=== PATIENT | female | born 1975 | race Caucasian/White ===

== ENCOUNTER 2016-07-16 08:54 | Inpatient (IN) | payer MEDICAID ==
--- NOTE | 2016-07-09 18:18 | HISTORY & PHYSICAL ---
DATE OF ADMISSION: 07/16/16 ATTENDING PHYSICIAN: Meggan Adhikari MD HISTORY OF PRESENTATION: This is a 40-year-old 3, para 2 who will be 39 weeks on 07/16/16, who will be presenting for a repeat Caesarean section and bilateral tubal ligation. She has an EDC of 07/23/16 and her dates are by an 11-week ultrasound. She has a history of a full-term demise 06/13/11 at 40-1/7 weeks secondary to an amniotic band. Her second , she delivered Apple on 09/23/13. She was induced at 37-5/7 weeks for possible placental insufficiency. She ended up having a low-transverse Caesarean section for recurrent lates and vaginal bleeding at 2 cm. The infant had Apgars of 8 and 9. There was a very short cord noted, only 25 cm and weight was 2438 grams. She otherwise did well. PRENATALS: Her prenatals are A positive, antibody screen negative, Rubella immune. Pap and HPV were negative 02/2014. GC and chlamydia were negative. Serology was nonreactive. hemoglobin and hematocrit were 13.8 and 41.9. HIV was negative. Hepatitis B was negative. She declined cystic fibrosis testing and trisomy screening. Her MSAFP was normal. One-hour glucose tolerance test was 83. She has been followed jointly with [facility] because of her history of term demise, and they have seen no concerns this . She declined her influenza vaccine repeatedly. Adacel vaccine was given 05/28/15. PAST MEDICAL HISTORY: Benign. PAST SURGICAL HISTORY: Low-transverse Caesarean section. SOCIAL HISTORY: No tobacco, alcohol or marijuana. She is to Fabián. They have 1 daughter Apple. She works as a massage therapist. FAMILY HISTORY: Significant for high blood pressure. MEDICATIONS: vitamins. ALLERGIES: None. PHYSICAL EXAMINATION VITAL SIGNS: Height 63 inches. Weight 172 pounds. Blood pressure 111/69. CARDIAC: Regular rate and rhythm. LUNGS: Clear. ABDOMEN: Gravid. Fundal height 5 consistent with dates. ASSESSMENT AND PLAN: Term with history of previous Caesarean section. Patient was offered a trial of labor, but she declined. She would like to proceed with a Caesarean section and bilateral tubal ligation as she and her have completed childbearing. She signed her Medicaid sterilization consent on 04/29/2016. [facility]ITAL[facility]atar[facility]
[~2016-07-16 08:54] MED LIST: CEFAZOLIN SODIUM 1 GM in NORMAL SALINE MINI-BAG+ 100 ML IV ONE; FAMOTIDINE IN SALINE, ISO-OSM 20 MG/50 ML PIGGYBACK IV SCH; HOME MEDICATION LIST NEEDED 1 EA EACH MC ONE; NORMAL SALINE 1,000 ML IV SCH
[2016-07-16 09:18] LABS: BASOPHILS 0.4 % (0.0-2.0); EOSINOPHILS# 0.1 X 10^3uL (0.0-0.4); HEMATOCRIT 41.9 % (36.0-48.0); HEMOGLOBIN 13.9 g/dL (12.0-16.0); LYMPHOCYTES 23.7 % (20.0-40.0); LYMPHOCYTES# 2.2 X 10^3uL (0.8-3.8); MEAN CELL VOLUME 91.6 fL (80.0-100.0); MEAN CORPUS. HGB CONCENTRATION 33.2 g/dL (32.0-36.0); MEAN CORPUSCULAR HEMOGLOBIN 30.4 pg (29.0-35.0); MEAN PLATELET VOLUME 8.1 fL (7.4-10.4); MONOCYTES 6.8 % (2.0-10.0); MONOCYTES# 0.6 X 10^3uL (0.2-1.0); NEUTROPHILS 68.1 % (54.0-75.0); NEUTROPHILS# 6.3 X 10^3uL (2.6-6.7); PLATELET COUNT 247 X 10^3uL (130-440); RED BLOOD COUNT 4.58 X 10^6uL (4.20-6.10); WHITE BLOOD COUNT 9.3 X 10^3uL (3.9-10.7)
[2016-07-16] MEDS ORDERED: MORPHINE SULFATE/PF 10 MG/10 ML VIAL ONE (09:23)
[2016-07-16] MEDS ORDERED: FENTANYL 100 MCG/2 ML VIAL ONE (09:24)
[2016-07-16] MEDS ORDERED: OXYTOCIN 10 UNITS/ML VIAL ONE (09:37)
[2016-07-16] MEDS ORDERED: EPHEDrine SULFATE 50 MG/ML VIAL ONE (09:37)
[2016-07-16] MEDS ORDERED: CEFAZOLIN SODIUM 1 GM/10 ML VIAL ONE (09:44)
[2016-07-16] MEDS ORDERED: FAMOTIDINE IN SALINE, ISO-OSM 50 ML IV ONE (09:44)
[2016-07-16 10:03] LABS: ABO GROUP TYPE A; ANTIBODY SCREEN NEGATIVE; RH TYPE POSITIVE
--- NOTE | 2016-07-16 10:11 | PROGRESS NOTE:Antepartum ---
Assessment and Plan - Date of Encounter Date of Encounter: 07/16/16 (1) Term Status: Acute Assessment and plan: Repeat LTCS today. Informed consent obtained. Current Visit: Yes (2) Encounter for sterilization Status: Acute Assessment and plan: Plan bilateral Tubal ligation. Current Visit: Yes - Time Spent With Patient Total time spent with greater than 50% in coordination of care (as documented) at patient's floor/unit and/or counseling patient: SALES & SERVICE ASSOCIATE: Antepartum PN Subj - Subjective Interval history: Patient arrives today for LTCS. Confirmed she would like BTL. Baby moving well. No Ctx or VB. See Dictated H/P. Antepartum ROS: movement normal, swelling (trace), no vaginal bleeding, no contractions, no loss of fluid, no headache, no shortness of breath SALES & SERVICE ASSOCIATE: Antepartum PN Obj Exam - Latest Vital Signs and I&O Latest Vital Signs/I&O: Vital Signs Temp 36.4 C L 07/16/16 09:30 Pulse 102 H 07/16/16 09:30 Resp 16 07/16/16 09:30 BP 118/87 07/16/16 09:30 Pulse Ox 94 07/16/16 09:30 Intake & Output 07/15/16 07/16/16 07/16/16 17:59 05:59 17:59 Weight 78.018 kg 78.018 kg - Exam Heart Monitor: category I Lungs: Bilateral: normal Heart Rhythm: Present: regular Heart sounds: Absent: [place] Extremities: Absent: edema Abdomen: Present: normal appearance - Lab Labs: Laboratory Last Values WBC 9.3 X 10^3uL (3.9-10.7) 07/16/16 09:04 RBC 4.58 X 10^6uL (4.20-6.10) 07/16/16 09:04 Hgb 13.9 g/dL (12.0-16.0) 07/16/16 09:04 Hct 41.9 % (36.0-48.0) 07/16/16 09:04 MCV 91.6 fL (80.0-100.0) D 07/16/16 09:04 MCH 30.4 pg (29.0-35.0) 07/16/16 09:04 MCHC 33.2 g/dL (32.0-36.0) 07/16/16 09:04 RDW 13.0 % (11.5-14.5) 07/16/16 09:04 Plt Count 247 X 10^3uL (130-440) 07/16/16 09:04 MPV 8.1 fL (7.4-10.4) 07/16/16 09:04 Neutrophils % 68.1 % (54.0-75.0) 07/16/16 09:04 Lymphocytes % 23.7 % (20.0-40.0) 07/16/16 09:04 Eosinophils % 1.0 % (0.0-6.0) 07/16/16 09:04 Basophils % 0.4 % (0.0-2.0) 07/16/16 09:04 Neutrophils # 6.3 X 10^3uL (2.6-6.7) 07/16/16 09:04 Lymphocytes # 2.2 X 10^3uL (0.8-3.8) 07/16/16 09:04 Monocytes 6.8 % (2.0-10.0) 07/16/16 09:04 Monocytes # 0.6 X 10^3uL (0.2-1.0) 07/16/16 09:04 Eosinophils # 0.1 X 10^3uL (0.0-0.4) 07/16/16 09:04 Basophils # 0.0 X 10^3uL (0.0-0.1) 07/16/16 09:04 ABO Group Type a 07/16/16 09:04 Rh Factor Positive 07/16/16 09:04 Antibody Screen Negative 07/16/16 09:04
[2016-07-16] MEDS ORDERED: DIPHENHYDRAMINE 50 MG/ML VIAL IV PRN (11:31)
[2016-07-16] MEDS ORDERED: NORMAL SALINE 1,000 ML IV SCH (11:31)
[2016-07-16] MEDS ORDERED: NALBUPHINE HCL 10 MG/ML AMP IV PRN (11:31)
[2016-07-16] MEDS ORDERED: HOME MEDICATION LIST NEEDED 1 EA EACH MC ONE (11:31)
[2016-07-16] MEDS ORDERED: DIPHENHYDRAMINE 25 MG CAPSULE PO PRN (11:31)
[2016-07-16] MEDS ORDERED: NALOXONE HCL 0.4 MG/ML VIAL IV PRN ×3 (11:31)
[2016-07-16] MEDS ORDERED: KETOROLAC TROMETHAMINE 30 MG/ML VIAL IV ONE (11:31)
[2016-07-16] MEDS ORDERED: FENTANYL 100 MCG/2 ML VIAL IV PRN (11:31)
[2016-07-16] MEDS ORDERED: MORPHINE SULFATE 10 MG/ML SYR IV PRN (11:31)
[2016-07-16] MEDS ORDERED: CEFAZOLIN SODIUM 1 GM in NORMAL SALINE MINI-BAG+ 100 ML IV ONE (11:31)
[2016-07-16] MEDS ORDERED: LACTATED RINGERS 1,000 ML IV SCH ×2 (12:00→13:24)
[2016-07-16] MEDS ORDERED: KETOROLAC TROMETHAMINE 30 MG/ML VIAL IV PRN (12:42)
[2016-07-16] MEDS: ONDANSETRON HCL 4 MG/2 ML VIAL IV PRN ×2 (13:08→14:24)
[2016-07-16 13:17] LABS: URINE MUCUS NONE SEEN (Up to 25%); URINE SQUAMOUS EPITHELIAL CELL NONE SEEN (<= 15/hpf); URINE WBC NONE SEEN (0-4/hpf)
[2016-07-16] MEDS ORDERED: SIMETHICONE CHEW 80 MG TABLET PO PRN (13:24)
[2016-07-16] MEDS ORDERED: MAGNESIUM HYDROXIDE 30 ML UDC PO PRN (13:24)
[2016-07-16] MEDS ORDERED: MEPERIDINE HCL/PF 50 MG/ML SYR IV PRN (13:24)
[2016-07-16] MEDS ORDERED: LANOLIN CREAM 1 APP/7 GM TUBE TOP PRN (13:24)
[2016-07-16] MEDS ORDERED: NALOXONE HCL 0.4 MG/ML VIAL ONE (13:39)
[2016-07-16 13:48] LABS: URINE APPEARANCE CLEAR; URINE COLOR YELLOW; URINE GLUCOSE NORMAL (NEGATIVE); URINE KETONE 100mg/dL (3+) (NEGATIVE); URINE LEUKOCYTE ESTERASE NEGATIVE (NEGATIVE); URINE NITRITE NEGATIVE (NEGATIVE); URINE PROTEIN 30mg/dL (1+) (NEG - TRACE); URINE SPECIFIC GRAVITY 1.025 (0.001-1.035); URINE UROBILINOGEN 0.2mg/dL (Normal) (NEG-1mg/dL)
[2016-07-16 13:49] LABS: URINE BACTERIA NONE SEEN (<10/hpf); URINE BILIRUBIN NEGATIVE (NEGATIVE); URINE BLOOD 10 Ery/uL (1+) (NEGATIVE); URINE SPERM NONE SEEN
[2016-07-16] MEDS ORDERED: LANOLIN CREAM 1 APP/7 GM TUBE TOPICAL PRN (13:50)
--- NOTE | 2016-07-16 13:56 | OPERATIVE NOTE: C-Section ---
- Operative Report Date of procedure: 07/16/16 Pre-Op Diagnosis: Term , desire of permanent sterility Post-op diagnosis: same Procedure: LTCS and BTL Anesthesia Type: Spinal Estimated Blood Loss: 600 Pathology: sent (Bilateral fallopian tube segments.) Sponge and instrument counts: correct X-ray taken: No Estimated Gestational Age (weeks): 39 Delivery Presentation: vertex Heart Monitor: category I Intrapartum Events: none Amniotic Fluid: clear Cord Vessel Description: 3 Vessels Cord clamped: Yes Cord blood obtained: Yes at 1 minute: 8 at 5 minutes: 9 Infant Gender: Male Weight: 3.014 kg Delivery Complications: Present: none Narrative: PT brought to OR for repeat LTCS and BTL. She declined LINDSEY. Informed consent obtained and MEDICAID sterilization forms initially signed 04/29/17. FHT's Category I. Pt taken to OR where spinal placed. FHTS 149. Marks catheter placed and she was placed in supine position with roll under right hip. Time out was taken correctly identifying patient and procedures. Prepped and draped in sterile fashion. Adequate anesthesia assessed and scalpel used to make Pfannenstiel skin incision along her previous scar This was taken to fascia via cautery. The fascia was incised with cautery. The fascia was lifted off the abdominal wall. The rectus muscles were exposed. They were cut along the midline with cochran scissors. Faschia was entered and pulled apart exposing a midline uterus. An Anoop O-ring was introduced to expose the uterus. A bladder flap was pushed inferiorly. The uterus was entered in the lower segment via a LT incision. It was very thick and undeveloped. An amniotomy was performed and revealed adequate clear fluid. The infants head was lifted easily and delivered with fundal pressure. He was bulb suctioned. The shoulders delivered without difficulty. The cord was clamped twice and cut and a vigorous crying male was handed to the automatic dry starch operator who was present for delivery. Cord blood was obtained. The uterus was manually massaged and placenta delivered intact. The uterus firmed up very quickly. Counts were correct. Bailey clamps were used for hemostasis. A running locking 0 chromic suture was used for the first layer. A second umbricating layer was placed and excellent hemostasis. No figure 8's were needed. The left fallopian tube was identified and followed to it's fibria and ovary identified. It was ligated with 2 separate plain gut sutures and the mid-portion removed and sent for pathology. The ends were cauterized for scant bleeding. The same process of identification and technique used on the right fallopian tube. The uterine wound was reinspected and found to have excellent hemostasis. The abdominal wound was irrigated with warm sterile saline. All counts were correct. The O-ring was removed. The peritoneum was closed and then the rectus muscles with 0 chromic simple interrupted sutures. The Faschia was closed with running non locking 0 PDS. The wound was irrigated again. The skin was closed with 4.0 Monocryl in a running subcuticular fashion carefully reapproximating her tattoo. A dressing of Telfa, ABD and gauze used with hypafix tape for a pressure bandage. The fundus was massaged with 50 cc of uterine bleeding. It was firm. The patinet was taken to L/D for post op care.
[2016-07-16] MEDS: KETOROLAC TROMETHAMINE 30 MG/ML VIAL IV PRN ×2 (14:15→23:06)
[2016-07-16] MEDS ORDERED: DEXAMETHASONE 4 MG/ML VIAL IM ONE (14:27)
--- NOTE | 2016-07-16 14:27 | PROGRESS NOTE:C-section ---
Assessment and Plan - Date of Encounter Date of Encounter: 07/16/16 (1) Term Status: Acute Current Visit: Yes (2) Encounter for sterilization Status: Acute Current Visit: Yes (3) Status post repeat low transverse section Status: Acute Assessment and plan: Post op nausea not controlled with Zofran. Blood pressure good. Add Dexamethasone. Current Visit: Yes - Time Spent With Patient Total time spent with greater than 50% in coordination of care (as documented) at patient's floor/unit and/or counseling patient: PUBLIC HEALTH CLINICAL NURSE SPECIALIST: C-Sec PN Subjective Interval History: S/P LTCS with BTL. Pain well controlled but having significant nausea. Patient reports: nausea : doing well, nursing well PUBLIC HEALTH CLINICAL NURSE SPECIALIST: C-Sec PN Obj Exam - Latest Vital Signs and I&O Latest Vital Signs/I&O: Vital Signs Temp 36.7 C 07/16/16 12:50 Pulse 77 07/16/16 12:50 Resp 21 07/16/16 12:50 BP 117/69 07/16/16 12:50 Pulse Ox 97 07/16/16 12:50 Intake & Output 07/15/16 07/16/16 07/16/16 17:59 05:59 17:59 Intake Total 1050 Output Total 300 Balance 750 Weight 78.018 kg 78.018 kg Intake: IV 1000 Right Wrist 1000 Oral 50 Output: Urine 300 Uretheral (Marks) 150 Other: Urine Appearance Clear Urine Color Pale Yellow Uretheral (Marks) Pale Yellow Voiding Method Indwelling Catheter - Exam Lungs: Bilateral: normal Heart Rhythm: Present: regular Heart sounds: Absent: [place] Incision: Present: dressed Uterus: Present: firm (No freee flow) - Lab Labs: Laboratory Last Values WBC 9.3 X 10^3uL (3.9-10.7) 07/16/16 09:04 RBC 4.58 X 10^6uL (4.20-6.10) 07/16/16 09:04 Hgb 13.9 g/dL (12.0-16.0) 07/16/16 09:04 Hct 41.9 % (36.0-48.0) 07/16/16 09:04 MCV 91.6 fL (80.0-100.0) D 07/16/16 09:04 MCH 30.4 pg (29.0-35.0) 07/16/16 09:04 MCHC 33.2 g/dL (32.0-36.0) 07/16/16 09:04 RDW 13.0 % (11.5-14.5) 07/16/16 09:04 Plt Count 247 X 10^3uL (130-440) 07/16/16 09:04 MPV 8.1 fL (7.4-10.4) 07/16/16 09:04 Neutrophils % 68.1 % (54.0-75.0) 07/16/16 09:04 Lymphocytes % 23.7 % (20.0-40.0) 07/16/16 09:04 Eosinophils % 1.0 % (0.0-6.0) 07/16/16 09:04 Basophils % 0.4 % (0.0-2.0) 07/16/16 09:04 Neutrophils # 6.3 X 10^3uL (2.6-6.7) 07/16/16 09:04 Lymphocytes # 2.2 X 10^3uL (0.8-3.8) 07/16/16 09:04 Monocytes 6.8 % (2.0-10.0) 07/16/16 09:04 Monocytes # 0.6 X 10^3uL (0.2-1.0) 07/16/16 09:04 Eosinophils # 0.1 X 10^3uL (0.0-0.4) 07/16/16 09:04 Basophils # 0.0 X 10^3uL (0.0-0.1) 07/16/16 09:04 Urine Color Yellow 07/16/16 13:00 Urine Appearance Clear 07/16/16 13:00 Urine pH 7.0 (5-7) 07/16/16 13:00 Ur Specific Capac 1.025 (0.001-1.035) 07/16/16 13:00 Urine Protein 30mg/dl (1+) (NEG - TRACE) A 07/16/16 13:00 Urine Ketones 100mg/dl (3+) (NEGATIVE) A 07/16/16 13:00 Urine Blood 10 giovanni/ul (1+) (NEGATIVE) A 07/16/16 13:00 Urine Nitrate Negative (NEGATIVE) 07/16/16 13:00 Urine Bilirubin Negative (NEGATIVE) 07/16/16 13:00 Urine Urobilinogen 0.2mg/dl (normal) (NEG-1mg/dL) 07/16/16 13:00 Ur Leukocyte Esterase Negative (NEGATIVE) 07/16/16 13:00 Urine RBC 5-10/hpf (0-5/hpf) A 07/16/16 13:00 Urine WBC None seen (0-4/hpf) 07/16/16 13:00 Ur Squamous Epith Cells None seen (<= 15/hpf) 07/16/16 13:00 Urine Bacteria None seen (<10/hpf) 07/16/16 13:00 Urine Mucus None seen (Up to 25%) 07/16/16 13:00 Urine Sperm None seen 07/16/16 13:00 Urine Glucose Normal (NEGATIVE) 07/16/16 13:00 ABO Group Type a 07/16/16 09:04 Rh Factor Positive 07/16/16 09:04 Antibody Screen Negative 07/16/16 09:04
[2016-07-16] MEDS ORDERED: ONDANSETRON HCL 4 MG/2 ML VIAL ONE (14:29)
[2016-07-16] MEDS ORDERED: ONDANSETRON HCL 4 MG/2 ML VIAL IV PRN (14:32)
[2016-07-16] MEDS ORDERED: FAMOTIDINE IN SALINE, ISO-OSM 20 MG/50 ML PIGGYBACK IV SCH (21:00)
[2016-07-16] MEDS: DOCUSATE SODIUM 100 MG CAPSULE PO SCH (23:07)
[2016-07-17] MEDS ORDERED: IBUPROFEN 600 MG TABLET PO ONE (05:37)
[2016-07-17 07:22] LABS: BASOPHILS 0.1 % (0.0-2.0); EOSINOPHILS 0.1 % (0.0-6.0); LYMPHOCYTES 12.9 % (20.0-40.0); LYMPHOCYTES# 1.9 X 10^3uL (0.8-3.8); MEAN CELL VOLUME 91.3 fL (80.0-100.0); MEAN CORPUS. HGB CONCENTRATION 33.3 g/dL (32.0-36.0); MEAN CORPUSCULAR HEMOGLOBIN 30.4 pg (29.0-35.0); MEAN PLATELET VOLUME 8.7 fL (7.4-10.4); MONOCYTES# 0.6 X 10^3uL (0.2-1.0); NEUTROPHILS 82.9 % (54.0-75.0); NEUTROPHILS# 11.9 X 10^3uL (2.6-6.7); RED BLOOD COUNT 3.95 X 10^6uL (4.20-6.10); RED CELL DISTRIBUTION WIDTH 12.9 % (11.5-14.5)
[2016-07-17 08:01] LABS: WHITE BLOOD COUNT 14.4 X 10^3uL (3.9-10.7)
[2016-07-17] MEDS: DOCUSATE SODIUM 100 MG CAPSULE PO SCH ×2 (11:01→20:04)
[2016-07-17] MEDS: IBUPROFEN 600 MG TABLET PO PRN ×3 (11:44→23:39)
--- NOTE | 2016-07-17 13:26 | PROGRESS NOTE:C-section ---
Assessment and Plan - Date of Encounter Date of Encounter: 07/17/16 (1) Status post repeat low transverse section Status: Acute Assessment and plan: Doing much better today. Nausea resolved. Plan routine care. Current Visit: Yes - Time Spent With Patient Total time spent with greater than 50% in coordination of care (as documented) at patient's floor/unit and/or counseling patient: PLUGGER: C-Sec PN Subjective Interval History: Feeling much better today Patient reports: voiding normally, pain well controlled, ambulating normally, flatus, no nausea : doing well, nursing well PLUGGER: C-Sec PN Obj Exam - Latest Vital Signs and I&O Latest Vital Signs/I&O: Vital Signs Temp 36.9 C 07/17/16 09:00 Pulse 68 07/17/16 09:00 Resp 18 07/17/16 09:00 BP 108/69 07/17/16 09:00 Pulse Ox 94 07/17/16 09:00 Intake & Output 07/16/16 07/17/16 07/17/16 17:59 05:59 17:59 Intake Total 2450 860 600 Output Total 1300 1100 Balance 1150 -240 600 Weight 78.018 kg Intake: IV 2000 Right Wrist 2000 Oral 450 860 600 Output: Urine 300 1100 Uretheral (Marks) 150 Emesis 400 Other 600 Other: Urine Appearance Clear Clear Urine Color Light Nita Yellow Uretheral (Marks) Pale Yellow Stool Characteristics Voiding Method Indwelling Catheter Indwelling Catheter - Exam Lungs: Bilateral: normal Heart Rhythm: Present: regular Extremities: Absent: tenderness Abdomen: Present: soft. Absent: distention Bowel sounds: present Uterus: Present: firm, non tender - Lab Labs: Laboratory Last Values WBC 14.4 X 10^3uL (3.9-10.7) H 07/17/16 06:25 RBC 3.95 X 10^6uL (4.20-6.10) L 07/17/16 06:25 Hgb 12.0 g/dL (12.0-16.0) 07/17/16 06:25 Hct 36.0 % (36.0-48.0) 07/17/16 06:25 MCV 91.3 fL (80.0-100.0) 07/17/16 06:25 MCH 30.4 pg (29.0-35.0) 07/17/16 06:25 MCHC 33.3 g/dL (32.0-36.0) 07/17/16 06:25 RDW 12.9 % (11.5-14.5) 07/17/16 06:25 Plt Count 232 X 10^3uL (130-440) 07/17/16 06:25 MPV 8.7 fL (7.4-10.4) 07/17/16 06:25 Neutrophils % 82.9 % (54.0-75.0) H 07/17/16 06:25 Lymphocytes % 12.9 % (20.0-40.0) L 07/17/16 06:25 Eosinophils % 0.1 % (0.0-6.0) 07/17/16 06:25 Basophils % 0.1 % (0.0-2.0) 07/17/16 06:25 Neutrophils # 11.9 X 10^3uL (2.6-6.7) H 07/17/16 06:25 Lymphocytes # 1.9 X 10^3uL (0.8-3.8) 07/17/16 06:25 Monocytes 4.0 % (2.0-10.0) 07/17/16 06:25 Monocytes # 0.6 X 10^3uL (0.2-1.0) 07/17/16 06:25 Eosinophils # 0.0 X 10^3uL (0.0-0.4) 07/17/16 06:25 Basophils # 0.0 X 10^3uL (0.0-0.1) 07/17/16 06:25 Urine Color Yellow 07/16/16 13:00 Urine Appearance Clear 07/16/16 13:00 Urine pH 7.0 (5-7) 07/16/16 13:00 Ur Specific [place] 1.025 (0.001-1.035) 07/16/16 13:00 Urine Protein 30mg/dl (1+) (NEG - TRACE) A 07/16/16 13:00 Urine Ketones 100mg/dl (3+) (NEGATIVE) A 07/16/16 13:00 Urine Blood 10 giovanni/ul (1+) (NEGATIVE) A 07/16/16 13:00 Urine Nitrate Negative (NEGATIVE) 07/16/16 13:00 Urine Bilirubin Negative (NEGATIVE) 07/16/16 13:00 Urine Urobilinogen 0.2mg/dl (normal) (NEG-1mg/dL) 07/16/16 13:00 Ur Leukocyte Esterase Negative (NEGATIVE) 07/16/16 13:00 Urine RBC 5-10/hpf (0-5/hpf) A 07/16/16 13:00 Urine WBC None seen (0-4/hpf) 07/16/16 13:00 Ur Squamous Epith Cells None seen (<= 15/hpf) 07/16/16 13:00 Urine Bacteria None seen (<10/hpf) 07/16/16 13:00 Urine Mucus None seen (Up to 25%) 07/16/16 13:00 Urine Sperm None seen 07/16/16 13:00 Urine Glucose Normal (NEGATIVE) 07/16/16 13:00 ABO Group Type a 07/16/16 09:04 Rh Factor Positive 07/16/16 09:04 Antibody Screen Negative 07/16/16 09:04
[2016-07-17] MEDS: HYDROcodone/APAP 5/325 MG 1 TAB TABLET PO PRN ×4 (14:21→23:38)
[2016-07-17 23:52] VITALS: RESP 16
[2016-07-18] MEDS: HYDROcodone/APAP 5/325 MG 1 TAB TABLET PO PRN ×3 (05:57→12:51)
[2016-07-18] MEDS: IBUPROFEN 600 MG TABLET PO PRN ×2 (05:58→12:51)
[2016-07-18 08:07] VITALS: BP 116/72; PULSE 76; TEMP 98.1; O2SAT 92
--- NOTE | 2016-07-18 08:13 | DC SUMMARY: Obstetrical/GYN ---
Discharge Summary: Surg/OB Provider: Date of Admission: 07/16/16 Admitting Provider: DENA MCKEON MD Attending Provider: DENA MCKEON MD Discharging Provider: KRISTEN GOULD MD Primary Care Provider: Discharge Date: 07/18/16 - Diagnosis (1) Status post repeat low transverse section Status: Acute Hospital Course: Ms. PALUMBO is a 40 year old female admitted for repeat section and bilateral tubal ligation. Her surgery was without complication. She suffered from severe nausea after surgery for several hours which finally abated after several antiemetics were given. After this she did well and had good return of bowel and bladder function. On the second postoperative day she was able to ambulate, void, tolerate regular diet and her pain was controlled with oral medications. She is discharged in good condition. Discharge - Patient/Caregiver Discharge Instructions Activity Level: Pelvic and abdominal rest Diet: Regular Additional Instructions: Discharge Instructions for Dr. Mckeon 1. Please make a follow up appointment to see me. 2. Contact me in [place] at [phone] or Rajat Cole [phone]. 3. You should use Ibuprofen 600 mg, three times a day for pain. If that is inadequate you may be given a narcotic prescription. Narcotics are very constipating and you should use fiber or Colace to prevent constipation if taking them regularly. You should not drive a car while taking narcotics. 4. Take your vitamins as long as you breast feed or for 6 weeks after delivery. 5. If you are not , wear a jog bra or tight bra for 2 weeks to prevent milk production. Wear this both night and day. If you are having pain , use ice packs and try not to stimulate your nipples. You may also use Ibuprofen and Tylenol. 6. If you are having troubles with breast feeding including pain or sore nipples please call me. Always remind physicians that you are breast feeding if you receive a new medication prescription. 7. To help prevent complications with : a. Ensure good position and latch b. Ensure feeding on demand c. Empty breasts fully d. Use hand expression to help relieve fullness e. Expose breast engorgement to warm water by shower or basin f. Call if unrelieved or if you have questions Rajat Cole : Josefa Huerta, ___[phone] Devan Kilgore, __[phone]___ 8. Bleeding is normal for 2-6 weeks after delivery. It may be heavier when you exercise or do more activity. If it seems heavy or you are passing clots please call me. 9. Use Pads only for bleeding. Do not use Tampons. 10. If I request you take iron to help build your blood counts back up you can get this over the counter. The most common form is Iron Sulfate 325 mg. Take one daily. It is best taken on an empty stomach with orange juice. 11. Do not have intercourse until 4-6 weeks after you delivery or until you quit bleeding. 12. You may shower or take sitz baths in 3 inches of warm water but do not soak in hot tubs or take deep baths until you quit bleeding (about 4-6 weeks). 13. If you had a , do not lift anything heavier than your baby for 2 weeks, and do not drive for 2 weeks. You may shower. You do not need to wear a bandage. A small amount of drainage from the incision is normal but if it seems excessive or the wound is red or painful please call me immediately. 14. Please dont hesitate to call with any questions. Follow up: DENA MCKEON MD [Primary Care Provider] - 07/19/16 Overall discharge status: stable Home Medications: Ibuprofen [Motrin] 2 - 3 tab PO Q4H PRN #30 tablet PRN Reason: pain Disposition: HOME, SELF-CARE Obstetrical/STRAPPER Discharge Exam - Latest Vital Signs and I&O Latest Vital Signs/I&O: Vital Signs Temp 36.7 C 07/18/16 08:00 Pulse 76 07/18/16 08:00 Resp 16 07/18/16 08:00 BP 116/72 07/18/16 08:00 Pulse Ox 92 07/18/16 08:00 Intake & Output 07/17/16 07/18/16 07/18/16 17:59 05:59 17:59 Intake Total 1120 Output Total 1000 Balance 120 Intake: Oral 1120 Output: Urine 1000 Other: Urine Appearance Clear Urine Color Yellow Voiding Method Toilet Toilet # Bowel Movements 0 - Exam Lungs: Bilateral: normal Heart Rhythm: Present: regular Extremities: Absent: tenderness Abdomen: Present: soft. Absent: distention Bowel sounds: present Incision: Present: well approximated, sutures intact. Absent: erythematous Uterus: Present: firm, non tender Discharge Summary Data - Medication History Medication History: Home Medications Pnv95/Ferrous Fumarate/FA [ Multivitamins Tablet] 1 tab PO DAILY Inpatient Medications 07/16/16 13:24 HYDROcodone/APAP 5/325 MG [[place]] 1 - 2 tab PO Q4H PRN Magnesium Hydroxide [Milk of Magnesia] 30 ml PO PRN PRN Simethicone Chew [Mylicon] 80 mg PO Q6H PRN 07/16/16 13:50 Lanolin Cream [Lansinoh] 1 le TOPICAL PRN PRN 07/16/16 14:32 Ondansetron HCl [Zofran] 4 mg IV Q6H PRN 07/16/16 21:00 Docusate Sodium [Colace] 100 mg PO BID 07/17/16 10:00 Ibuprofen [Motrin] 600 mg PO Q6H PRN Procedures and tests throughout hospitalization: Completed Lab Orders 07/16/16 09:04 ABO GROUP [HEM] Routine ANTIBODY SCREEN [HEM] Routine CBC AUTO DIF, MDIF/RMOR IF IND [HEM] Routine RH TYPE [HEM] Routine 07/16/16 13:00 UA W/ MICRO -CULTURE IF IND [URINE] Routine 07/17/16 06:25 CBC AUTO DIF, MDIF/RMOR IF IND [HEM] AMDRAW Pending Orders 07/15/16 11:33 Admit: Inpatient Routine Activity: Bathroom Privileges . 07/16/16 11:31 Did pt have a spinal/epidural? . Maintain IV access post spinal CONTINUOUS Monitor End Tidal CO2 CONTINUOUS Oxygen by Nasal Cannula TITRATE TO >90% Vital Signs Q1HX12,Q2H Warm blankets if temp<36 C PRN 07/16/16 13:24 Dressing Change PRN Notify Physician PRN Post Assessment PER PROTOCOL Vital Signs Q15MX4,Q30MX2,Q1HX2,Q4H HYDROcodone/APAP 5/325 MG [[place]] 1 - 2 tab PO Q4H PRN Magnesium Hydroxide [Milk of Magnesia] 30 ml PO PRN PRN Simethicone Chew [Mylicon] 80 mg PO Q6H PRN 07/16/16 13:50 Lanolin Cream [Lansinoh] 1 le TOPICAL PRN PRN 07/16/16 14:32 Ondansetron HCl [Zofran] 4 mg IV Q6H PRN 07/16/16 21:00 Docusate Sodium [Colace] 100 mg PO BID 07/16/16 Lunch Regular [DIET] 07/17/16 09:00 May shower POD #1 07/17/16 10:00 Ibuprofen [Motrin] 600 mg PO Q6H PRN
[2016-07-18] MEDS: DOCUSATE SODIUM 100 MG CAPSULE PO SCH (09:09)
== END 2016-07-18 13:15 | disposition home or self-care (01) | DRG 766 ==
LOC: SDS 08:54 → NLC 08:56
PROVIDERS: ADMIT Family Medicine; ATTEND Family Medicine
PROC: 0UB70ZZ Excision of Bilateral Fallopian Tubes, Open Approach (ICD-10-PCS; principal; 2016-07-16)
PROC: 10D00Z1 Extraction of Products of Conception, Low, Open Approach (ICD-10-PCS; principal; 2016-07-16)
DX: O34.211 Maternal care for low transverse scar from previous cesarean delivery (principal); Z3A.39 39 weeks gestation of pregnancy; Z30.2 Encounter for sterilization
CPT/HCPCS: 36415; 81001; 85025; 86850; 86900; 86901; C1781; J0690; J1885; J2405; J2590; J7120